=== PATIENT | male | born 1955 | race African-American/Black ===

== ENCOUNTER 2025-08-11 06:44 | Day surgery (SDC) | payer MEDICARE ==
[2025-08-07 12:38] VITALS: BMI 35.5
[2025-08-11] MEDS ORDERED: Acetaminophen 500 MG TAB ONE (07:40)
[2025-08-11] MEDS ORDERED: Ketorolac Tromethamine 30 MG (1 mL) VIAL ONE (07:40)
[2025-08-11] MEDS ORDERED: CEFAZOLIN 2 GM VIAL ONE (08:17)
[2025-08-11] MEDS ORDERED: Bupivacaine/Epinephrine 0.25% 30 ML VIAL ONE (08:17)
[2025-08-11] MEDS ORDERED: PROPOFOL 40 ML ONE (08:44)
[2025-08-11] MEDS ORDERED: Ondansetron PF 4 MG/2 ML Vial ONE (08:44)
[2025-08-11] MEDS ORDERED: Lidocaine 1% PF 5 ML VIAL ONE (08:44)
[2025-08-11] MEDS ORDERED: Glycopyrrolate 0.2 MG/ML 5 ML SYRINGE ONE (09:07)
[2025-08-11] MEDS ORDERED: PHENYLEPHRINE-NS 100 MCG/ML 10 ML SYRINGE ONE (09:07)
[2025-08-11] MEDS ORDERED: HYDROmorphone 0.5 MG/0.5 ML SYRINGE ONE (11:32)
[2025-08-11] MEDS ORDERED: HYDROcodone/Acetaminophen 5/325 mg Tablet ONE (11:35)
== END 2025-08-11 12:45 | disposition home or self-care (01) ==
LOC: CSHSDC 06:44
PROVIDERS: ATTEND Specialist
PROC: 0JH60WZ Insertion of Totally Implantable Vascular Access Device into Chest Subcutaneous Tissue and Fascia, Open Approach (ICD-10-PCS; principal; 2025-08-11)
DX: C49.5 Malignant neoplasm of connective and soft tissue of pelvis (principal); F17.200 Nicotine dependence, unspecified, uncomplicated
CPT/HCPCS: 11043; 11046 ×3; 36561; 71045; 93005; C1788; J1171; J1642; J1885; J2405; J2704; J3010 ×2; 88304; 88307; 88341; 88342; 93010